=== PATIENT | male | born 1980 | race Caucasian/White ===

== ENCOUNTER 2016-08-01 08:32 | Emergency (ER) | payer SELFPAY ==
[2016-08-01 08:32] VITALS: BMI 25.8
[2016-08-01 09:16] VITALS: TEMP 98.3
[2016-08-01] MEDS ORDERED: Naproxen 550 mg Tab PO STA (09:46)
[2016-08-01] MEDS ORDERED: TDAP Vaccine 0.5 mL Syr IM ONE (09:46)
[2016-08-01] MEDS ORDERED: Bacitracin 500 Units/gm Oint Foilpak UD TOP ONE (09:47)
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
[2016-08-01 10:38] VITALS: BP 124/79; PULSE 90; RESP 16; O2SAT 99
== END 2016-08-01 10:58 | disposition home or self-care (01) ==
LOC: ED 08:32
DX: S60.511A Abrasion of right hand, initial encounter (principal); X99.1XXA Assault by knife, initial encounter; Y92.9 Unspecified place or not applicable; Z23 Encounter for immunization

== ENCOUNTER 2016-10-25 04:11 | Emergency (ER) | payer SELFPAY ==
[2016-10-25 04:16] VITALS: RESP 18; TEMP 98.3
[2016-10-25 04:21] VITALS: BMI 23.9
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
[2016-10-25] MEDS ORDERED: TDAP Vaccine 0.5 mL Syr IM ONE (06:07)
[2016-10-25 06:36] VITALS: BP 146/78; PULSE 110; O2SAT 96
== END 2016-10-25 06:20 ==
LOC: ED 04:11
DX: S01.01XA Laceration without foreign body of scalp, initial encounter (principal); Y08.89XA Assault by other specified means, initial encounter; Y93.89 Activity, other specified; Y92.89 Other specified places as the place of occurrence of the external cause; Z23 Encounter for immunization

== ENCOUNTER 2016-11-02 11:45 | Emergency (ER) | payer SELFPAY ==
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
[2016-11-02 11:58] VITALS: O2SAT 99; BMI 23.2
[2016-11-02 12:14] VITALS: BP 119/72; PULSE 85; RESP 20; TEMP 98
== END 2016-11-02 12:17 | disposition home or self-care (01) ==
LOC: ED 11:45
DX: Z48.02 Encounter for removal of sutures (principal)

== ENCOUNTER 2017-11-07 14:43 | Emergency (ER) | payer MEDICAID ==
[2017-11-07 14:43] VITALS: BMI 23.2
[2017-11-07 15:53] VITALS: BP 149/80
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
[2017-11-07 17:51] VITALS: PULSE 78; RESP 18; TEMP 98; O2SAT 99
== END 2017-11-07 17:51 | disposition home or self-care (01) ==
LOC: ED 14:43
DX: G44.309 Post-traumatic headache, unspecified, not intractable (principal); T14.8XXA Other injury of unspecified body region, initial encounter; Y00.XXXA Assault by blunt object, initial encounter; Y92.009 Unspecified place in unspecified non-institutional (private) residence as the place of occurrence of the external cause

== ENCOUNTER 2018-04-20 01:02 | Emergency (ER) | payer MEDICAID ==
[2018-04-20 01:08] VITALS: BMI 20.9
[2018-04-20 01:33] VITALS: BP 136/76; PULSE 89; RESP 18; TEMP 98
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
[2018-04-20 01:43] VITALS: O2SAT 98
== END 2018-04-20 01:42 | disposition home or self-care (01) ==
LOC: ED 01:02
DX: F10.129 Alcohol abuse with intoxication, unspecified (principal)

== ENCOUNTER 2018-09-11 08:12 | Emergency (ER) | payer SELFPAY ==
[2018-09-11 08:12] VITALS: BMI 20.9
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
[2018-09-11 10:04] LABS: BARBITURATES, UR NEGATIVE (NEGATIVE); BENZODIAZEPINES, UR NEGATIVE (NEGATIVE); OPIATES, UR NEGATIVE (NEGATIVE); PHENCYCLIDINE, UR NEGATIVE (NEGATIVE)
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
[2018-09-11 12:02] VITALS: BP 126/74; PULSE 87; RESP 16; TEMP 98.2; O2SAT 98
== END 2018-09-11 12:08 ==
LOC: ED 08:12
DX: S00.03XA Contusion of scalp, initial encounter (principal); X83.8XXA Intentional self-harm by other specified means, initial encounter
CPT/HCPCS: 70450; 99285; G0480